=== PATIENT | female | born 1950 | race Hispanic/Latino ===

== ENCOUNTER → 2022-07-14 | Outpatient (CLI) | payer OTHER | END | disposition home or self-care (01) | LOC: RAH 14:09 | PROVIDERS: ATTEND Internal Medicine | DX: J41.0 Simple chronic bronchitis (principal) | CPT/HCPCS: 71250 ==

== ENCOUNTER → 2024-10-20 | Outpatient (CLI) | payer OTHER, MEDICAID ==
--- NOTE | 2024-10-21 07:22 | HMCIMG ---
EXAMINATION: ULTRASOUND OF THE RETROPERITONEUM. CLINICAL HISTORY: CKD. COMPARISON: None. TECHNIQUE: Real-time grayscale ultrasound images of the kidneys. FINDINGS: The kidneys are smaller in caliber, the right kidney measures 7.4 x 3.7 x 3.2 cm and the left kidney measures 6.7 x 4.1 x 3.4 cm in its craniocaudal, AP, and transverse dimensions respectively. There is normal renal cortical thickness, and increased cortical echogenicity. There is no renal calculus or hydronephrosis. There is a simple cortical cyst that measures 0.9 x 0.8 x 1.0 cm in the left renal upper pole. The urinary bladder is normal in caliber and wall thickness (0.20 cm). There are no calculi in the urinary bladder. Pre-void volume is 164 cc and post-void volume is 87 cc. IMPRESSION: Bilateral smaller kidney with renal parenchymal disease. Left renal simple cortical cyst. Significant post-void residue. /[place]
== END | disposition home or self-care (01) ==
LOC: RAH 12:44
PROVIDERS: ATTEND Internal Medicine
DX: N28.1 Cyst of kidney, acquired (principal); N18.32 Chronic kidney disease, stage 3b
CPT/HCPCS: 76770